=== PATIENT | female | born 2000 | race Two or more races ===

== ENCOUNTER 2022-11-09 00:04 | Emergency (ER) | payer MEDICAID ==
[~2022-11-09] VITALS: Ht 172.7 cm; Wt 72.7 kg
[2022-11-09 00:39] VITALS: BP 129/79
== END 2022-11-09 03:19 | disposition home or self-care (01) ==
LOC: EMS 00:08 → EDSEX 00:08 → EMS 03:19
DX: S00.12XA Contusion of left eyelid and periocular area, initial encounter (principal); F41.9 Anxiety disorder, unspecified; W19.XXXA Unspecified fall, initial encounter; Y93.89 Activity, other specified; Y92.89 Other specified places as the place of occurrence of the external cause; Y99.8 Other external cause status
CPT/HCPCS: 99283; Z7502